=== PATIENT | male | born 1965 | race Caucasian/White ===

== ENCOUNTER 2018-10-08 12:51 | Emergency (ER) | payer MEDICARE, MEDICAID ==
[~2018-10-08] VITALS: Ht 170.2 cm; Wt 70.5 kg
[2018-10-08] MEDS ORDERED: normal saline 1000ml 1,000 ML IV ONE ×2 (13:15→14:05)
[2018-10-08 13:47] LABS: BASOPHILS # (AUTO) 0.1 X10'3 (0-0.2); BASOPHILS % (AUTO) 0.8 % (0-1); EOSINOPHILS # (AUTO) 0.4 X10'3 (0-0.9); EOSINOPHILS % (AUTO) 4.7 % (0-6); HEMATOCRIT 42.6 % (42.0-52.0); HEMOGLOBIN 13.7 g/dl (14.0-17.9); LYMPHOCYTES # (AUTO) 2.1 X10'3 (1.1-4.8); LYMPHOCYTES % (AUTO) 26.8 % (21-51); MEAN CORPUSCULAR HEMOGLOBIN 23.3 PG (27.0-31.0); MEAN CORPUSCULAR HGB CONC 32.2 % (33.0-36.5); MEAN CORPUSCULAR VOLUME 72.4 FL (78-98); MEAN PLATELET VOLUME 11.5 FL (7.4-10.4); MONOCYTES # (AUTO) 0.5 X10'3 (0-0.9); MONOCYTES % (AUTO) 7.2 % (2-12); NEUTROPHILS # (AUTO) 4.6 X10'3 (1.8-7.7); NEUTROPHILS % (AUTO) 60.5 % (42-75); PLATELET COUNT 192 X10'3 (140-440); RED BLOOD COUNT 5.88 X10'6 (4.70-6.10); RED CELL DISTRIBUTION WIDTH 16.7 % (11.5-14.5); WHITE BLOOD COUNT 7.7 X10'3 (4.5-11.0)
[2018-10-08 13:54] LABS: CLARITY,URINE CLEAR (Clear); COLOR,URINE YELLOW (Yellow); GLUCOSE, URINE NEGATIVE (Neg); KETONES,URINE NEGATIVE (Neg); LEUKOCYTE ESTERASE ,URINE NEGATIVE (Neg); NITRITES, URINE NEGATIVE (Neg); OCCULT BLOOD,URINE NEGATIVE (Neg); PROTEIN,URINE NEGATIVE (Neg)
[2018-10-08 13:56] LABS: UA COLLECTION TYPE STRAIGHT CATH
[2018-10-08 14:02] LABS: ALANINE AMINOTRANSFERASE 73 U/L (12-78); ALBUMIN 4.1 G/DL (3.4-5.0); ALKALINE PHOSPHATASE 133 IU/L (46-116); ANION GAP 14 (8-16); ASPARTATE AMINO TRANSFERASE 70 U/L (10-37); BILIRUBIN,TOTAL 0.6 MG/DL (0.1-1.0); BLOOD UREA NITROGEN 9 MG/DL (7-18); BUN/CREATININE RATIO 9.8 (5.4-32.0); CALCIUM 9.2 MG/DL (8.5-10.1); CHLORIDE 100 MMOL/L (99-107); CREATININE 0.92 MG/DL (0.60-1.10); GLUCOSE 144 MG/DL (70-104); POTASSIUM 3.8 MMOL/L (3.5-5.1); SODIUM 136 MMOL/L (135-145); TOTAL CARBON DIOXIDE 22.3 MMOL/L (24-32); TOTAL PROTEIN 8.2 G/DL (6.4-8.2); eGFR 86 ML/MIN
[2018-10-08] MEDS ORDERED: levetiracetam inj 1,000 MG in normal saline 100ml IV soln 90 ML IV ONE (14:05)
[2018-10-08 14:36] VITALS: BP 151/93
== END 2018-10-08 15:11 | disposition home or self-care (01) ==
LOC: ER 12:52
DX: R56.9 Unspecified convulsions (principal); I10 Essential (primary) hypertension; F84.0 Autistic disorder
CPT/HCPCS: 36415; 80053; 81003; 85025; 93005; 96365; 99285; J1953; P9612; J7030

== ENCOUNTER 2020-06-13 17:32 | Emergency (ER) | payer MEDICARE, MEDICAID ==
[~2020-06-13] VITALS: Ht 177.8 cm; Wt 109.1 kg
[2020-06-13] MEDS ORDERED: normal saline 1000ML IV soln IVB ONE (18:00)
[2020-06-13 18:31] LABS: BASOPHILS # (AUTO) 0.1 X10'3 (0-0.2); BASOPHILS % (AUTO) 1.6 % (0-1); EOSINOPHILS # (AUTO) 0.2 X10'3 (0-0.9); EOSINOPHILS % (AUTO) 3.5 % (0-6); HEMATOCRIT 31.5 % (42.0-52.0); HEMOGLOBIN 9.6 g/dl (14.0-17.9); LYMPHOCYTES % (AUTO) 28.9 % (21-51); MEAN CORPUSCULAR HEMOGLOBIN 20.1 PG (27.0-31.0); MEAN CORPUSCULAR HGB CONC 30.5 g/dL (33.0-36.5); MEAN CORPUSCULAR VOLUME 65.8 FL (78-98); MEAN PLATELET VOLUME 10.4 FL (7.4-10.4); MONOCYTES # (AUTO) 0.6 X10'3 (0-0.9); PLATELET COUNT 130 X10'3 (140-440); RED BLOOD COUNT 4.79 X10'6 (4.70-6.10); RED CELL DISTRIBUTION WIDTH 18.7 % (11.5-14.5)
--- NOTE | 2020-06-13 18:40 | NUR ---
Pt's Nephew phoned and reports he has been contacted by [facility]PS and is currently the point of contact for the family at this time. Pt's family are attempting to have him placed at [facility] as an inpatient once a COVID-19 swab and a TB test are completed. Provider made aware.
[2020-06-13 18:44] LABS: ALANINE AMINOTRANSFERASE 33 U/L (12-78); ALBUMIN 3.3 G/DL (3.4-5.0); ALBUMIN/GLOBULIN RATIO 0.8 (1.1-1.5); ALKALINE PHOSPHATASE 174 IU/L (46-116); ANION GAP 13 (8-16); ASPARTATE AMINO TRANSFERASE 53 U/L (10-37); BILIRUBIN,TOTAL 1.3 MG/DL (0.1-1.0); BLOOD UREA NITROGEN 4 MG/DL (7-18); BUN/CREATININE RATIO 4.3 (5.4-32.0); CALCIUM 7.9 MG/DL (8.5-10.1); CHLORIDE 106 MMOL/L (99-107); CREATININE 0.92 MG/DL (0.60-1.10); GLUCOSE 171 MG/DL (70-104); POTASSIUM 3.6 MMOL/L (3.5-5.1); SODIUM 137 MMOL/L (135-145); TOTAL CARBON DIOXIDE 18.1 MMOL/L (24-32); TOTAL PROTEIN 7.4 G/DL (6.4-8.2); eGFR 85 ML/MIN
[2020-06-13 18:53] LABS: CREATINE KINASE 58 U/L (39-308); ETHANOL < 0.010 GM/DL (0.0-0.010)
[2020-06-13] MEDS ORDERED: LORazepam 2 mg/ml vial IV ONE (19:05)
[2020-06-13 19:11] LABS: ACANTHOCYTES 1+; ANISOCYTOSIS 2+; HYPOCHROMASIA 1+; PLATELET ESTIMATE DECREASED; POIKILOCYTOSIS 2+
[2020-06-13 19:12] LABS: ELLIPTOCYTES FEW; SCHISTOCYTES FEW
[2020-06-13] MEDS ORDERED: LORazepam 2 mg/ml vial IM ONE (19:25)
[2020-06-13 19:26] LABS: CLARITY,URINE SLIGHTLY CLOUDY (Clear); COLOR,URINE YELLOW (Yellow); GLUCOSE, URINE NEGATIVE (Neg); KETONES,URINE NEGATIVE (Neg); LEUKOCYTE ESTERASE ,URINE TRACE (Neg); NITRITES, URINE NEGATIVE (Neg); OCCULT BLOOD,URINE NEGATIVE (Neg); PROTEIN,URINE NEGATIVE (Neg)
[2020-06-13 19:36] LABS: UA COLLECTION TYPE STRAIGHT CATH
[2020-06-13 19:38] LABS: AMORPHOUS URATES 2+; BACTERIA,URINE FEW /HPF (Neg); RBC,URINE NONE SEEN /HPF (0-2); SQUAMOUS EPITHELIAL CELL,UR FEW /LPF (FEW); WBC,URINE 0-4 /HPF (0-4)
--- NOTE | 2020-06-13 19:41 | NUR ---
WHILE PRIMARY RN ON LUNCH BREAK, PT CLEANED UP FROM HEAD TO TOE PT COVERED IN FECES, URINE SAMPLE COLLECTED, LINENS CHANGED AND KARLA CARE PROVIDED. PT NOW TUCKED BACK INTO BED WITH NEW WARM BLANKETS.
[2020-06-13 19:42] LABS: URINE AMPHETAMINE SCREEN NEGATIVE (Neg); URINE BARBITUATE SCREEN NEGATIVE (Neg); URINE BENZODIAZEPINES SCREEN NEGATIVE (Neg); URINE CANNABINOID SCREEN NEGATIVE (Neg); URINE COCAINE SCREEN NEGATIVE (Neg); URINE METHADONE SCREEN NEGATIVE (Neg); URINE OPIATE SCREEN NEGATIVE (Neg); URINE PHENCYCLIDINE SCREEN NEGATIVE (Neg)
--- NOTE | 2020-06-13 20:29 | NUR ---
Note brad in EDM - 06/13/20 at 2030 by AMANDA BREAKING PRIMARY RN. PT IS RESTING COMFORTABLY WITH US AT BEDSIDE. WILL CONTINUE TO MONITOR.
--- NOTE | 2020-06-13 20:30 | NUR ---
BREAKING PRIMARY RN. WILL MONITOR PT. PT RESTING COMFORTABLY.
--- NOTE | 2020-06-13 20:30 | NUR ---
Note brad in ED - 06/13/20 at 2030 by AMANDA BREAKING PRIMARY RN. WILL MONITOR PT. PT RESTING COMFORTABLY.
[2020-06-13] MEDS ORDERED: BENZ0.5T43 PO (21:30)
[2020-06-13] MEDS ORDERED: DIVA-81 PO (21:30)
[2020-06-13] MEDS ORDERED: HALO1TAB PO (21:30)
[2020-06-13] MEDS ORDERED: METO25TA6 PO (21:30)
[2020-06-13] MEDS ORDERED: ATOR20TA PO (21:30)
[2020-06-13] MEDS: atorvastatin 20mg tablet PO SCH (22:01)
[2020-06-13] MEDS: divalproex sod 250mg ER (24-hour) tablet PO SCH (22:02)
[2020-06-13] MEDS: benztropine 1mg tablet PO SCH (22:02)
--- NOTE | 2020-06-13 22:14 | NUR ---
PT MOVED FROM ROOM 7 IN ED TO ED OF BED 24.
--- NOTE | 2020-06-13 22:21 | NUR ---
Patient moved to bed #24 from the ER. He is making mumbling noises other than that is he nonverbal.
--- NOTE | 2020-06-13 22:23 | NUR ---
Family member: Carmen Carmelo Carol Ann [phone]
--- NOTE | 2020-06-13 22:35 | NUR ---
Packet to [facility] and they are aware of patient developemental delays. They will see him tomorrow.
--- NOTE | 2020-06-14 00:05 | NUR ---
The patient is resting on his bed and is one to one with staff
--- NOTE | 2020-06-14 02:17 | NUR ---
The patient appears to be sleeping
[2020-06-14] MEDS ORDERED: LORazepam 1 MG tablet PO ONE (03:40)
--- NOTE | 2020-06-14 03:47 | NUR ---
The patient is up restless and making loud grunting noises. He was given ativan with applesauce.
--- NOTE | 2020-06-14 05:43 | NUR ---
Laura salinas in [facility] - 06/14/20 at 0548 by AMANDA PT MOVED TO ED ROOM 16.
--- NOTE | 2020-06-14 05:51 | NUR ---
The patient appears to be sleeping
--- NOTE | 2020-06-14 07:21 | NUR ---
asleep no resp dist
--- NOTE | 2020-06-14 08:02 | NUR ---
asleep no resp dist
[2020-06-14] MEDS: haloperidol 1mg tablet PO SCH ×3 (08:38→23:23)
[2020-06-14] MEDS: metoprolol tartrate 25mg tablet PO SCH ×2 (08:38→20:00)
--- NOTE | 2020-06-14 09:30 | NUR ---
asleep no resp dist
--- NOTE | 2020-06-14 10:17 | NUR ---
asleep no resp dist
--- NOTE | 2020-06-14 10:20 | NUR ---
was notified if pt were to be transferred that the accepting facility is requiring a covid swab
--- NOTE | 2020-06-14 10:30 | NUR ---
COVID swab sent to lab
--- NOTE | 2020-06-14 10:34 | NUR ---
was just notified that the accepting facility is now asking for a tb test to be completed before transfer or a chest xray to r/o tb. dr hathaway notified.
--- NOTE | 2020-06-14 11:26 | NUR ---
pt walked without assistance around nursing station. pt is nonverbal and was directed to bathroom, pt refused, pt was given food and walked back to bed to eat food. no distress noted.
--- NOTE | 2020-06-14 11:40 | NUR ---
In bed keeps having to be redirected back to bed keeps getting out and wandering around, patient is non-verbal so unable to vocalize needs
--- NOTE | 2020-06-14 12:11 | NUR ---
Walking around needing to be redirected constantly
--- NOTE | 2020-06-14 13:26 | NUR ---
relieving RN for lunch, contacted Horace Tran, staff for [facility] looking for placement for pt, [facility] , no bed available yet, need to fax covid and cxray results to [facility] at (fax number [phone]), charge nurse aware, also [facility] will transfer pt to new facility when bed is available. Report to Randell LESTER
--- NOTE | 2020-06-14 13:56 | NUR ---
Resting in bed no resp distress
--- NOTE | 2020-06-14 14:28 | NUR ---
Resting in bed no resp distress
--- NOTE | 2020-06-14 15:00 | NUR ---
asleep no resp distress
[2020-06-14] MEDS: LORazepam 1 MG tablet PO PRN ×2 (15:02→23:23)
--- NOTE | 2020-06-14 16:00 | NUR ---
asleep no distress
--- NOTE | 2020-06-14 17:00 | NUR ---
asleep no distress
--- NOTE | 2020-06-14 19:04 | NUR ---
Pt resting quietly, respirations normal, no s/s of distress. Attempted to wake pt for dinner.
--- NOTE | 2020-06-14 20:30 | NUR ---
Unable to wake pt fully to cooperate with taking po meds. Will attempt again later tonight.
[2020-06-14] MEDS: benztropine 1mg tablet PO SCH ×2 (21:00→23:23)
[2020-06-14] MEDS: divalproex sod 250mg ER (24-hour) tablet PO SCH ×2 (21:00→23:23)
[2020-06-14] MEDS: atorvastatin 20mg tablet PO SCH ×2 (21:00→23:23)
[2020-06-14] MEDS ORDERED: traZODone 50mg tablet PO SCH (21:25)
--- NOTE | 2020-06-14 23:00 | NUR ---
Pt up out of bed all of a sudden. Wandering the unit, growling. Meds given.
--- NOTE | 2020-06-14 23:49 | NUR ---
Pt urinated on the floor, copious amounts of urine.
--- NOTE | 2020-06-15 01:00 | NUR ---
Pt continuously attempts to get out of bed.
[2020-06-15] MEDS ORDERED: diphenhydrAMINE 25mg capsule PO ONE ×2 (01:50→19:40)
--- NOTE | 2020-06-15 02:45 | NUR ---
Pt had bowel movement in bed. Pt changed and bedding changed
--- NOTE | 2020-06-15 03:15 | NUR ---
Pt was incontinent of bowel again. Pt cleaned up and put back into bed.
--- NOTE | 2020-06-15 03:38 | NUR ---
Pt continues to get out of bed despite constant redirecting. Approaching area of 14 year female pt. Pt placed in restraints per md orders. Will continue to monitor.
[2020-06-15] MEDS ORDERED: LORazepam 2 mg/ml vial IM ONE (03:40)
[2020-06-15] MEDS ORDERED: haloperidol lactate 5mg/ml inj IM ONE (03:40)
--- NOTE | 2020-06-15 04:08 | NUR ---
Pt given b52 and still continuously trying to get out of bed.
--- NOTE | 2020-06-15 06:40 | NUR ---
Nursing Note: Pt laying in bed with eyes closed, no S&S of distress, RR even and unlabored, will continue to monitor.
--- NOTE | 2020-06-15 08:00 | NUR ---
Nursing Note: Unable to complete Johnston Suicide Severity Scale, pt is non-verbal and unable to respond to questions. Will continue to monitor.
--- NOTE | 2020-06-15 08:09 | NUR ---
Nursing Note: Pt laying on R side, eyes closed, RR even and unlabored, no S&S of distress, will continue to monitor.
[2020-06-15] MEDS: metoprolol tartrate 25mg tablet PO SCH ×2 (09:26→19:52)
[2020-06-15] MEDS: haloperidol 1mg tablet PO SCH ×2 (09:26→19:57)
--- NOTE | 2020-06-15 09:37 | NUR ---
Nursing Note: Pt up to the restroom. Pt urinated on the floor and in the toilet. Pt took his medications with jello. Medications late due to the fact he was sleeping due to medications given at 0400. Pt needs frequent redirection and encouragement to stay in bed. Will continue to monitor.
--- NOTE | 2020-06-15 10:34 | NUR ---
Nursing Note: Spoke with Lela, health c programmer at [facility] - work and . She requested P.C.R. test for Covid-19. Discussed this with CRN and [facility] does not offer a P.C.R. Covid test. Informed Lela that test is not available, she indicated she would proceed with trying to place patient with the Covid-19 (YVETTE) test already completed. Will continue to monitor.
--- NOTE | 2020-06-15 11:06 | NUR ---
assumed care while RN is on her 15 min break
--- NOTE | 2020-06-15 12:39 | NUR ---
pt up and down from his bed. in no obvious distress. walking around near the nursing station and back to bed.
--- NOTE | 2020-06-15 13:20 | NUR ---
Nursing Note: Pt consumed approximately 50% of his lunch with assistance from staff. Pt up walking around, but was redirectable to return to be. No S&S of distress, will continue to monitor.
--- NOTE | 2020-06-15 13:47 | NUR ---
Nursing Note: Pt walking in the haney. He is calm. He is intrusive with other patients. He requires close observation to ensure his safety and prevent him from entering other patient's rooms, the nursing station, and wandering from the overflow area. No S&S of distress, RR even and unlabored, will continue to monitor.
[2020-06-15] MEDS: LORazepam 1 MG tablet PO PRN (15:09)
--- NOTE | 2020-06-15 15:18 | NUR ---
Nursing Note: Pt continuously getting out of bed and wandering in unit. His gait is unsteady. Pt is redirected to lay in bed to prevent a fall, but he gets back out of bed within minutes. With pt's increased psychomotor activity he appears anxious. Ativan administered. Pt used restroom and returned to bed. Will continue to monitor.
--- NOTE | 2020-06-15 15:37 | NUR ---
Nursing Note: Pt laying on back in bed covered with a blanket. RR even unlabored, no S&S of distress. Will continue to monitor.
--- NOTE | 2020-06-15 16:30 | NUR ---
Nursing Note: Pt laying in bed with blanket over his head, Respirations even and unlabored, no S&S of distress, will continue to monitor.
--- NOTE | 2020-06-15 17:40 | NUR ---
Nursing Note: Pt laying on his L side with blanket over his head. RR even and unlabored, no S&S of distress, will continue to monitor.
[2020-06-15] MEDS ORDERED: LORazepam 1 MG tablet PO ONE (19:40)
[2020-06-15] MEDS ORDERED: haloperidol 5mg tablet PO ONE (19:40)
--- NOTE | 2020-06-15 19:50 | NUR ---
Pt. very anxious since 1814, getting in and out of bed, walking around the unit. He is difficult to redirect and requires constant monitoring by tech. Tech has been very involved and hands one with care. Pt's gait is very unstable and he requires contact guard assistance. made aware of pt's anxiety. New orders received from .
[2020-06-15] MEDS: atorvastatin 20mg tablet PO SCH (19:51)
[2020-06-15] MEDS: benztropine 1mg tablet PO SCH (19:52)
[2020-06-15] MEDS: divalproex sod 250mg ER (24-hour) tablet PO SCH (19:53)
--- NOTE | 2020-06-15 20:50 | NUR ---
Pt. laying in bed, resting/sleeping. No s/s of discomfort. Fluids encouraged.
--- NOTE | 2020-06-15 21:52 | NUR ---
Pt. sleeping at this time. No s/s of discomfort/distress. Even chest rise observed.
--- NOTE | 2020-06-16 00:27 | NUR ---
Pt. continues to sleep at this time. No s/s of discomfort/distress. Even chest rise apparent.
--- NOTE | 2020-06-16 01:19 | NUR ---
Pt. assisted to the bathroom at this time. He was able to void succesfully. Briefs checked for soilage. During the time that pt. was in the bathroom, he started to hit/punch himself on the side of his face. He did not cause any injury and he was easily redirected. He does have apparent old bruising to the L side of his face. computer technology teacher to sit with patient until he's sleeping again.
--- NOTE | 2020-06-16 02:31 | NUR ---
Pt. is requiring constant redirection. He has had periods of trying to get in and out of bed in the last hour. Pt. assisted to the bathroom, but he does not have any apparent needs to void or have a BM. Pt. being monitored by tech closely.
--- NOTE | 2020-06-16 03:40 | NUR ---
Pt. asleep. No concern at this time.
--- NOTE | 2020-06-16 04:35 | NUR ---
Pt. continues to sleep.
--- NOTE | 2020-06-16 05:57 | NUR ---
Pt. woke up and attempted to get out of bed. Pt. assisted to the bathroom but did not have to void or have a BM. Brief is dry and clean. Pt. was assisted back to bed and requires 1:1 to maintain safety. He also has behavior where he strikes himself with his fist when he is frustrated. Pt. redirected but not always effective.
--- NOTE | 2020-06-16 06:45 | NUR ---
pt walked around nursing station, no assistance needed, bed changed, refilled pt water. no distress noted.
[2020-06-16] MEDS: haloperidol 1mg tablet PO SCH ×2 (08:16→20:00)
[2020-06-16] MEDS: metoprolol tartrate 25mg tablet PO SCH ×2 (08:17→20:00)
--- NOTE | 2020-06-16 08:27 | NUR ---
pt given socks, redirected when walked out of overflow back doors. pt walked back. wandering overflow with no assistance needed. no distress noted, pt refused bathroom at this time.
--- NOTE | 2020-06-16 09:01 | NUR ---
pt laying in bed no distress noted. refilled pt water pitcher.
--- NOTE | 2020-06-16 09:35 | NUR ---
pt changed { diaper changed }by covered buckle assembler,pt urinated at this time ,new scrubs changed,bedding changed ,pt followed the commands,no distress noted .will cont to monitor.
--- NOTE | 2020-06-16 10:01 | NUR ---
pt has bm changed and cleaned with new diaper on,pt resting in bed at this time.will cont to monitor.
--- NOTE | 2020-06-16 10:24 | NUR ---
pt wandering in the haney way redirected by the home energy auditor ,asked if he wants to use restroom,opned the door and pt went inside and urinated by himself.urinated some on the floor and then able to urinate in toilet,pt pants changed and tucked in bed.
--- NOTE | 2020-06-16 11:39 | NUR ---
pt appear sleeping at this time RR even and unlabored,room in front of nurses station.will cont to monitor .
--- NOTE | 2020-06-16 12:47 | NUR ---
pt sleeping in bed quietly ,RR even and unlabored ,will cont to monitor.
--- NOTE | 2020-06-16 13:33 | NUR ---
pt up in bed went to restroom with assisstance pt urinated on the floor ,pt pants and socks changed ,positioned up higher in bed .now sitting up in bed eating his lunch without any assistance.
--- NOTE | 2020-06-16 14:43 | NUR ---
Assumed care of patient
[2020-06-16] MEDS: LORazepam 1 MG tablet PO PRN (15:30)
--- NOTE | 2020-06-16 16:54 | NUR ---
Pt asleep in no apparent distress
--- NOTE | 2020-06-16 17:20 | NUR ---
Pt sitting up eating crackers
--- NOTE | 2020-06-16 19:30 | NUR ---
Pt. in bed, calm. No s/s of distress/discomfort.
--- NOTE | 2020-06-16 20:30 | NUR ---
Pt. resting in bed, awake. Given and tolerated fluids. No other needs at this time.
[2020-06-16] MEDS: benztropine 1mg tablet PO SCH (21:00)
[2020-06-16] MEDS: divalproex sod 250mg ER (24-hour) tablet PO SCH (21:00)
[2020-06-16] MEDS: atorvastatin 20mg tablet PO SCH (21:00)
--- NOTE | 2020-06-16 21:30 | NUR ---
Pt. in bed, resting with eyes closed. No s/s of distress/discomfort.
--- NOTE | 2020-06-16 22:19 | NUR ---
Pt. in bed, asleep. Appears comfortable.
--- NOTE | 2020-06-16 23:21 | NUR ---
Pt. in bed, asleep. Even chest rise observed. No signs of discomfort.
--- NOTE | 2020-06-16 23:58 | NUR ---
relieving RN for break, pt is resting quietly on gurney, resp even and unlabored
--- NOTE | 2020-06-17 00:30 | NUR ---
Pt. on L side sleeping comfortably.
--- NOTE | 2020-06-17 01:51 | NUR ---
Pt. woke up at this time and was assisted to the bathroom. Pt. successfully voided. Briefs and bed noted to be dry. Fluids provided to pt. Pt. assisted to walk around by tech, as he was not staying in bed. Gait is unsteady and pt. requires contact guard assistance.
[2020-06-17] MEDS: LORazepam 1 MG tablet PO PRN ×3 (01:58→20:38)
--- NOTE | 2020-06-17 02:18 | NUR ---
Pt. continues to get in and out of bed. He requires 1:1 due to unsteady gait. Fluids provided. Will continue to closely monitor.
--- NOTE | 2020-06-17 03:15 | NUR ---
Pt. starting to calm down. Tech at bedside providing 1:1.
--- NOTE | 2020-06-17 04:30 | NUR ---
Pt. in bed on R side, sleeping comfortably.
--- NOTE | 2020-06-17 05:27 | NUR ---
Pt. continues to sleep. Even chest rise observed. Appears comfortable.
--- NOTE | 2020-06-17 06:50 | NUR ---
Pt gets up and out of bed and wanders in front of nurses station. ER sitter at pt side and redirects pt back to bed. Pt has been up several times and has also been taken to bathroom as well. Pt is non-verbal and unable to communicate needs.
--- NOTE | 2020-06-17 07:15 | NUR ---
Pt continues to get up and down out of bed and wander. ED MD Chambers came over and saw pt and requested medication as pt now getting agitated and moaning out loud and pacing.
--- NOTE | 2020-06-17 07:50 | NUR ---
Morning meds and PRN Ativan administered. Pt has been yelling out loud (no words) and constantly redirectd to bed after making "laps" around nurses station with sitter walking along/near by pt.
[2020-06-17] MEDS: haloperidol 1mg tablet PO SCH (07:51)
[2020-06-17] MEDS: metoprolol tartrate 25mg tablet PO SCH ×2 (07:52→20:38)
[2020-06-17] MEDS ORDERED: haloperidol 1mg tablet PO SCH (08:00)
--- NOTE | 2020-06-17 08:16 | NUR ---
TV taken at bedside and playing [employer]. Sitter remains at bedside with pt as well.
--- NOTE | 2020-06-17 10:45 | NUR ---
Pt stayed in bed during movie with encouragement of bedside sitter. Pt is now resting with eyes closed, effortless respirations observed.
--- NOTE | 2020-06-17 12:50 | NUR ---
Patient is up ambulating with nurses aid.
[2020-06-17] MEDS ORDERED: risperiDONE 0.5mg tablet PO ONE (13:25)
--- NOTE | 2020-06-17 13:30 | NUR ---
HAD PSYCHIATRIST DR. GERMAIN REVIEW PT MEDS AND RECEIVED ORDERS TO DC HALDOL AND COGENTIN ORDERS AND PT TO BE STARTED ON RISPERDOL.
--- NOTE | 2020-06-17 18:30 | NUR ---
PT WALKING AROUND THE UNIT WITH STEADY GAIT .
--- NOTE | 2020-06-17 19:40 | NUR ---
PT UP TO BATHROOM . PT WAS FED HIS ENTIRE DINNER BY SITTER .
[2020-06-17] MEDS: atorvastatin 20mg tablet PO SCH (20:37)
[2020-06-17] MEDS: divalproex sod 250mg ER (24-hour) tablet PO SCH (20:37)
[2020-06-17] MEDS: risperiDONE 0.5mg tablet PO SCH (20:37)
--- NOTE | 2020-06-17 20:50 | NUR ---
PT GIVEN HIS EVENING MEDS WITH APPLESAUCE . PT WITH SITTER MABULATING AROUND UNIT ADVISED SITTER THAT PATIENT WILL NEED TO STAY IN BED AFTER HIS NEX TO LAPS AROUND THE UNIT THE MEDICATION WILL START TO TAKE EFFECT .
--- NOTE | 2020-06-17 20:53 | NUR ---
PT NOW BACK TO BED . HOB ELEVATED 30 DEGREES . SITTER AT BEDSIDE . PT IN THE DIRECT LINE OF SIGHT OF NURSING STAFF .
--- NOTE | 2020-06-17 22:30 | NUR ---
PT STILL AMBULATING HALLWAY WITH SITTER. PT ABLE TO BE REDIRECTED BUT PT IS VERY NEEDY. ONCE PATIENT IS IN BED HE REQUIRES A SITTER TO SIT AT BEDISDE WITH HIM , OTHERWISE HE TRIES TO GET OUT OF BED . REDIRECTED PATIENT BACK TO BED . PATIENT BLOWING "RESPBERRIES " AND HAS HICCUPS
[2020-06-17] MEDS: risperiDONE 0.5mg tablet PO PRN (23:05)
--- NOTE | 2020-06-17 23:26 | NUR ---
Pt is awake at this time but nondisruptive and is accepting to care and basic directions. He has been trying to get out of bed every few minutes. PRN respirdone was given. Pt was checked for incontinence and is clean at this time. He was given a snack of applesauce.
--- NOTE | 2020-06-18 00:40 | NUR ---
PT NEEDING A LINEN AND SCRUB CHANGE . HE HAD X1 VOID THAT SOILED HIS SCRUBS AND BEDDING . PT WAS COROPORATIVE IN CHANGING HIS CLOTHING , PT BLOWING RASPBERRIES. PT OCCATIONALLY WILL HIT HIMSELF IN THE FACE AND RIGHT EYE. REDIRECTED PATIENT TO TRY AND DISTRACT PATIENT FROM SELF HITTING . PT WAS ABLE TO BE DISTRACTED AND STOP HITTING HIMSELF. PT USES A FLAT HAND AND FIST WHEN HE HITS HIMSELF . PT ALSO HAS BEEN OBSERVED T KICK HIMSELF WITH HIS LEFT HEEL AT THE RIGHT SCHIN AREA. PT IS FAINT BRUSING THAT IS STARTING TO APPEAR ON HIS FACE AT THE RIGHT EYE AND RIGHT CHEEK BONE AREA . RIGHT LOWER EXTREMITITY ABOVE THE ANKLE , BELOW THE KNEE REDDENED WHERE PATIENT HAS BEEN OCCATIONALLY KICKING HIMSLEF .
--- NOTE | 2020-06-18 01:15 | NUR ---
PT RESTING IN BED, HOB ELEVATED 30 DEGREES . PT AUROSABLE WITH TOUCH . SITTER AT BEDSUDE REDIRECTING PATIENT TO TRY AND SLEEP .
--- NOTE | 2020-06-18 01:23 | NUR ---
PT SLEEPING PEACFULLY ON HIS RIGHT SIDE AT THIS TIME WITH SITTER AT BEDSIDE . RESP EVEN AND UNLABORED . WILL CONTINUE TO MONITOR AND REASSESS NEEDED
[2020-06-18] MEDS: LORazepam 1 MG tablet PO PRN (02:37)
--- NOTE | 2020-06-18 02:44 | NUR ---
PT STILL TRYING TO GET UP OUT OF BED . SITTER AND MYSELF KEEP REDIRECTING PATIENT TO REMAIN IN BED HE HAS MEDICATION ON BOARD THAT COULD AFFECT HIS GAIT . PT RANDOMLY, WILL HIT HIS ELBOWS AGAINST HIS KNEES. HIS RIGHT ELBOW IS CURRENTLY ERRYTHEMIC WITH SOME SLIGHT SWELLING . REDIRECTED PATIENT FROM HITTING SELF IN CHRIS FACE WITH HIS FISTS, KICKING HIS RIGHT SCHIN WITH HIS LEFT HEEL, AND HITS HIS ELBOWS TO HIS THIGHS BILATERALY . CHECKED PATIENT DEPENDS TO MAKE SURE PT WAS DRY . REPSOTIONED PT ON HIS RIGHT SIDE . WARM BLANKETS OFFERED . PT PILLED BLANKET OVER HIS HEAD. MEDICATED PATIENT WITH 1 MG ATIVAN PO AND FED PATIENT SOME APPLE SAUCE . WILL CONTINUE TO MONITOR AND REASSESS. PT HAS HAD MAYBE ONLY 1 HR OF SLEEP SINCE 1830 .
--- NOTE | 2020-06-18 02:59 | NUR ---
PT CURREBTLY RESTING ON RIGHT SIDE WITH SITTER AT BEDSIDE . PT EYES ARE CLOSED AND HE APPEARS TO BE RESTING. RESP EVEN AND UNLABORED . WILL CONTINUE TO MONITOR AND REASSESS NEEDED
--- NOTE | 2020-06-18 03:22 | NUR ---
PT , WITH ASSISTANCE AMBULATED TO BATHROOM. CHANGED PTS SCRUBS AND ALLOWED PATIENT TO SIT ON TOLIET FOR A POSSIBLE BM PATIENT IS PASSING GAS . PUT WARM BLANKET ON BOTTOM SHEET TO HELP COMFORT MEASURES TO ASSIT PATIENT TO SLEEP . PT AMBULATED BACK TO BED WITH ASSITANCE AND CRAWLED BACK TO BED. PT CURRENTLY LYING SUPINE WITH HOB ELEVATED 30 DEGREES WITH BLANKETS OVER HIS HEAD . ABLE TO SEE CHEST RIASE AND FALL UNLABORED . WILL CONTINUE TO MONITOR AND REASSESS NEEDED
--- NOTE | 2020-06-18 04:38 | NUR ---
PT IS SLEEPING ON HIS LEFT SIDE . RESP EVEN AND UNLABORED . SITTER AT BEDSIDE WILL CONTINUE TO MONITOR AND REASSESS
--- NOTE | 2020-06-18 05:08 | NUR ---
PT SLEEPING FINALLY ON HIS LEFT SIDE RESO EVEN AND UNLABORED WILL CONTINUE TO MONITOR AND REASSESS NEEDED
--- NOTE | 2020-06-18 06:44 | NUR ---
PT AWAKE AND GETTING UP OUT OF BED. SITTER AT BEDSIDE TO ASSIST PT TO THE BATHROOM. PT IS UNSTEADY ON HIS FEET AT TIMES. PT NOW BACK IN BED AND SITTER IN CHAIR AT THE BEDSIDE. PT IS A ONE TO ONE.
--- NOTE | 2020-06-18 07:11 | NUR ---
PT PASSING GAS, TAKE PT TO BATHROOM TO SIT ON TOILET TO TRY TO HAVE A BM.
--- NOTE | 2020-06-18 07:17 | NUR ---
PT VOIDS AND IS BROUGHT BACK TO HIS BED.
[2020-06-18] MEDS: risperiDONE 0.5mg tablet PO SCH ×2 (07:19→20:21)
[2020-06-18] MEDS: metoprolol tartrate 25mg tablet PO SCH ×2 (07:20→20:27)
--- NOTE | 2020-06-18 07:24 | NUR ---
PT GIVEN MORNING MEDICATIONS WITH APPLESAUCE AND SEEMS HUNGRY. GIVE PT A SECOND APPLESAUCE. BREAKFAST SHOULD BE HERE BY 8AM
--- NOTE | 2020-06-18 08:08 | NUR ---
BREAKFAST TRAY BROUGHT TO PT. SITTER AT BEDSIDE TO ASSIST PT WITH EATING.
--- NOTE | 2020-06-18 09:07 | NUR ---
PT RESTING QUIETLY IN BED WITH COVERS OVER HIS HEAD. SITTER AT BEDSIDE FOR CLOSE OBSERVATION.
--- NOTE | 2020-06-18 13:07 | NUR ---
PT EATING LUNCH, FED TO HIM BY THE SITTER.
--- NOTE | 2020-06-18 15:00 | NUR ---
PT AMBULATING AROUND THE LOOP FOR EXERCISE.
--- NOTE | 2020-06-18 16:01 | NUR ---
SET UP THE TV IN PT'S ROOM TO KEEP HIM ENTERTAINED. SITTER AT BEDSIDE.
[2020-06-18] MEDS: divalproex sod 250mg ER (24-hour) tablet PO SCH (20:21)
[2020-06-18] MEDS: atorvastatin 20mg tablet PO SCH (20:21)
--- NOTE | 2020-06-18 21:09 | NUR ---
PT RESTING SUPINE IN BED . HOB ELEVATED 30 DEGREES. SITTER AT BEDSIDE , PT IS BLOWING AN OCCATIONAL " RASPBERRY" WITH HIS LIPS . NO RESP DISTRESSED NOTED . WILL CONTINUE TO MONITOR AND REASSESS
--- NOTE | 2020-06-18 23:07 | NUR ---
PT CONTINUES WITH 1:1 SITTER NEXT TO HIS BED. HAS BEEN CALM OVER THE PAST HR AND APPEARS TO BE SLEEPING. CONTINUES TO MUMBLE SOME EVERY 20 -30 MIN. GIVEN HIS EVENING MEDS , WHOLE WITH APPLESAUCE, AT 9 PM AND PT TAKING THEM WITH EASE. PT EATING ABOUT 25% OF HIS DINNER, 1:1 FEED. HE DID GET OUT OF THE BED AND WAS SBA WITH SITTER TO AMBULATE AROUND THE UNIT. GOT TO THE BR AND TECH OPENED THE DOOR BUT PT THEN CLOSED IT. DAY SHIFT RN REPORTED THAT PT WITH EXCESSIVE FOUL SMELLING GAS TODAY AND SUSPECTES HE WILL NEED TO HAVE BM SOON. PT IS REDIRECTABLE TO GETTING BACK TO HIS BED.
--- NOTE | 2020-06-19 00:47 | NUR ---
PT BEGAN MUMBLING AND MOVING IN THE BED AND ATTEMPTED TO GET UP. PT ASSISTED OOB AND WITH SLOW GAIT,SBA TO BR. PT VOIDING, AND HAD DRY BRIEF ON BUT HAD GOTTON URINE ON HIS PANTS AND LEFT THEM IN THE BR AND CAME OUT WITHOUT THEM ON. PT THEN LAY BACK IN BED THEN GOT RIGHT UP AND WALKING A LAP AROUND THE UNIT BEFORE REDIRECTED TO HIS BED. GIVEN PRN ATIVAN AND RESPERIDOL TABS AND PT THEN ATE THE REST OF THE APPLESAUCE.
[2020-06-19] MEDS: risperiDONE 0.5mg tablet PO PRN (00:53)
[2020-06-19] MEDS: LORazepam 1 MG tablet PO PRN ×3 (00:53→20:01)
--- NOTE | 2020-06-19 01:58 | NUR ---
RESTLESSNESS CONTINUES, WIGGLING IN THE BED, KICKING AT THE FOOT BOARD, REDIRECTED TO STAY IN THE BED. PT ALLOWED OUT OF THE BED AND AMBULATED TWICE AROUND THE UNIT. DOOR TO BR OPENED FOR HIM BUT HE PUSHED IT CLOSED. REQUIRES SBA, WALKING SLOW AND UNSTEADY.
--- NOTE | 2020-06-19 04:07 | NUR ---
PT HAS BEEN CALM AND QUIET AND APPEARED TO BE SLEEPING OVER THE PAST HOUR. JUST SHIFTED IN BED AND MUMBLED AND HAD A BRIEF COUGHING SPELL.
[2020-06-19] MEDS: risperiDONE 0.5mg tablet PO SCH ×2 (09:55→20:00)
[2020-06-19] MEDS: metoprolol tartrate 25mg tablet PO SCH ×2 (09:56→20:01)
--- NOTE | 2020-06-19 10:11 | NUR ---
PT HAD BEEN SLEEPING PEACEFULLY, AWOKE AT 1000, PROVIDED AM MEDS WITH APPLESAUCE, NO PROBLEMS. CARRIE GARNICA ASSISTED PT TO BATHROOM. PT VERY GASSY. PT BACK IN BED MOANING.
--- NOTE | 2020-06-19 10:38 | NUR ---
REC'D CALL FROM MALLORIE ACUÑA AT [facility]. THEY ARE WORKING ON A PLACEMENT FOR HIM. MALLORIE SHOULD KNOW SOMETHING MORE THIS AFTERNOON AND WILL GIVE US A CALL BACK.
--- NOTE | 2020-06-19 12:26 | NUR ---
PT LAYING IN BED, EYES CLOSED, CHEST RISING AND FALLING, APPEARS TO BE SLEEPING
--- NOTE | 2020-06-19 13:54 | NUR ---
PT WANTED OUT OF BED, TRIED TAKING TO BATHROOM BUT HE DID NOT WANT TO GO, AIDE ASSISTED BACK TO BED AND ASSISTED WITH EATING LUNCH
--- NOTE | 2020-06-19 14:39 | NUR ---
CLEANED UP PT, TRIMMED TOENAILS, SHAVED HEAD, CLEANED EARS, CHANGED CLOTHES, WALKED AROUND FLOOR, AND WENT BACK TO BED
--- NOTE | 2020-06-19 15:38 | NUR ---
WALKING AROUND THE FLOOR WITH THE AIDE
--- NOTE | 2020-06-19 16:29 | NUR ---
IN BED ON LEFT SIDE SLEEPING
--- NOTE | 2020-06-19 17:42 | NUR ---
PT SLEEPING PEACEFULLY
[2020-06-19] MEDS: atorvastatin 20mg tablet PO SCH (20:00)
[2020-06-19] MEDS: divalproex sod 250mg ER (24-hour) tablet PO SCH (20:00)
--- NOTE | 2020-06-19 20:00 | NUR ---
The patient is wandering aimlessly around the unit. He is nonverbal but makes constant grunting noises. He requires frequent redirection and close supervision when up out of bed 2nd to increased fall risk and wandering behaviors. The patient was given an ativan.
--- NOTE | 2020-06-19 21:20 | NUR ---
The patient currently appears to be resting on his bed.
--- NOTE | 2020-06-19 22:34 | NUR ---
The patient appears to be sleeping
--- NOTE | 2020-06-19 23:58 | NUR ---
The patient appears to be sleeping
--- NOTE | 2020-06-20 03:08 | NUR ---
The patient appears to be sleeping
--- NOTE | 2020-06-20 04:10 | NUR ---
pt was sleeping, just awakened and got up and began walking. SBA to BR
--- NOTE | 2020-06-20 04:20 | NUR ---
pt out of the br with urine on his brief and his pants. changed into clean items. pt now back in the bed with blankets covering to his shouders and eyes closed.
--- NOTE | 2020-06-20 04:43 | NUR ---
Pt up and ambulating around unit again. I just walked around the unit with him 2 laps about 10 min ago. Ambulating with slow and steady gait and SBA, moaning loudly intermittently as he walks.
[2020-06-20] MEDS: risperiDONE 0.5mg tablet PO PRN (04:54)
--- NOTE | 2020-06-20 04:58 | NUR ---
pt up again and ambulated around the unit twice. Given prn respridone and a cup of applesauce and Pt ate the whole cup feeding self independantly
--- NOTE | 2020-06-20 06:30 | NUR ---
pt sleeping, sitter at bedside
--- NOTE | 2020-06-20 08:30 | NUR ---
pt is sleeping. no concerns
--- NOTE | 2020-06-20 09:11 | NUR ---
BREAKING PRIMARY RN, PT IS LAYING ON HIS LEFT SIDE, SLEEPING, NO S/S OF AGITATION OBSERVED, WILL CONTINUE TO MONITOR
[2020-06-20] MEDS: risperiDONE 0.5mg tablet PO SCH ×2 (09:30→20:12)
[2020-06-20] MEDS: metoprolol tartrate 25mg tablet PO SCH ×2 (09:30→20:12)
[2020-06-20] MEDS: LORazepam 1 MG tablet PO PRN (09:30)
--- NOTE | 2020-06-20 09:36 | NUR ---
PT AWAKE EATING BREAKFAST
--- NOTE | 2020-06-20 10:42 | NUR ---
breaking primary rn, pt is being walked around the unit by sitter, mostly calm
--- NOTE | 2020-06-20 12:00 | NUR ---
pt is sleeping in his room. sitter at bedside
--- NOTE | 2020-06-20 13:40 | NUR ---
breaking primary RN, [facility]
--- NOTE | 2020-06-20 14:30 | NUR ---
pt is sleeping
--- NOTE | 2020-06-20 15:00 | NUR ---
pt is resting
--- NOTE | 2020-06-20 15:00 | NUR ---
Laura salinas in [facility] - 06/20/20 at 1758 by YESICA nurse to nurse report given
--- NOTE | 2020-06-20 16:00 | NUR ---
pt is sleeping
--- NOTE | 2020-06-20 17:00 | NUR ---
Laura salinas in [facility] - 06/20/20 at 1807 by YESICA pt is up walking around. sitter with patient. pt is unstersady
--- NOTE | 2020-06-20 17:00 | NUR ---
pt is walking around. pt is unsteady on his sitter. sitter with patient at all times
--- NOTE | 2020-06-20 17:56 | NUR ---
Laura salinas in [facility] - 06/20/20 at 1757 by YESICA pt is going to [facility].
--- NOTE | 2020-06-20 18:08 | NUR ---
pt is in bed with sitter next to him.
--- NOTE | 2020-06-20 18:45 | NUR ---
Laura salinas in ED - 06/20/20 at 1924 by SALAZAR Patient's mother called for update. Carmelo from Mental [facility] talked to her.
[2020-06-20] MEDS: atorvastatin 20mg tablet PO SCH (20:12)
[2020-06-20] MEDS: divalproex sod 250mg ER (24-hour) tablet PO SCH (20:13)
--- NOTE | 2020-06-20 21:20 | NUR ---
Pt appears to be sleeping, lying on his left side with blankets covering to his shouders. 1:1 Finn gonzalez, at bedside.
--- NOTE | 2020-06-21 06:39 | NUR ---
pt is sleeping. no concerns at this time
--- NOTE | 2020-06-21 07:22 | NUR ---
pt woke up to go to the bathroom, pt was hitting himself on the left side of his head near eye area, I am noticing bruising. Tried to get patient to stop but pt continues. pt knows to pull his pants down for restroom but does not aim his penis to toilet. I assisted and then assisted pt in washing hands
[2020-06-21] MEDS: risperiDONE 0.5mg tablet PO SCH ×2 (08:42→23:19)
[2020-06-21] MEDS: metoprolol tartrate 25mg tablet PO SCH ×2 (08:42→23:18)
[2020-06-21] MEDS: LORazepam 1 MG tablet PO PRN ×3 (09:00→23:17)
--- NOTE | 2020-06-21 09:30 | NUR ---
pt is ambulating around the unit with stand by. pt has steady gait but is a fall risk
--- NOTE | 2020-06-21 11:30 | NUR ---
pt ambulating around with the sitter
--- NOTE | 2020-06-21 14:17 | NUR ---
ryder paged to help with placement
[2020-06-21] MEDS: risperiDONE 0.5mg tablet PO PRN ×2 (15:08→23:20)
--- NOTE | 2020-06-21 16:51 | NUR ---
It has been said that the patient had a bed and lost it cause of pending TB test, this is not true. Additionally the patient was never accepted as an inpt upstairs at [facility]. The pt is waiting placement with [facility]. Two sites are possibility interested in taking the patient. It has been said they are going to come to [facility] to assess the patient in person to determine if it would be a good fit. Carlene has been consulted to help with placement. Neither place has called for a report or showed up to interview the patient
--- NOTE | 2020-06-21 19:00 | NUR ---
Pt resting comfortably, respirations normal, no s/s of distress.
--- NOTE | 2020-06-21 20:10 | NUR ---
Pt resting comfortably, respirations normal, no s/s of distress.
--- NOTE | 2020-06-21 22:00 | NUR ---
Pt resting comfortably, respirations normal, no s/s of distress.
--- NOTE | 2020-06-21 23:00 | NUR ---
Pt up out of bed. Meds given.
[2020-06-21] MEDS: divalproex sod 250mg ER (24-hour) tablet PO SCH (23:18)
[2020-06-21] MEDS: atorvastatin 20mg tablet PO SCH (23:19)
--- NOTE | 2020-06-21 23:37 | NUR ---
Pt up walking around wacking himself. Pt redirected.
--- NOTE | 2020-06-22 01:00 | NUR ---
Pt resting comfortably, respirations normal, no s/s of distress.
--- NOTE | 2020-06-22 02:02 | NUR ---
Pt resting comfortably, respirations normal, no s/s of distress.
--- NOTE | 2020-06-22 03:00 | NUR ---
Pt resting comfortably, respirations normal, no s/s of distress.
--- NOTE | 2020-06-22 04:17 | NUR ---
Pt resting comfortably, respirations normal, no s/s of distress.
--- NOTE | 2020-06-22 04:55 | NUR ---
Pt resting comfortably, respirations normal, no s/s of distress.
[2020-06-22] MEDS: risperiDONE 0.5mg tablet PO SCH ×2 (07:40→19:58)
[2020-06-22] MEDS: metoprolol tartrate 25mg tablet PO SCH ×2 (07:41→19:57)
--- NOTE | 2020-06-22 08:33 | NUR ---
SPOKE WITH ANNIKA [facility] HULL BUILDER. SHE STATES HERSELF, THE BODYBUILDER, AND TEAM ARE HAVING A MEETING ABOUT THE PT THIS MORNING. SHE STATES 1-2 FACILITIES ARE REVIEWING THE PT. NOTES HER COWORKER WILL GIVE US A CALL LATER TODAY WITH AN UPDATE.
--- NOTE | 2020-06-22 08:43 | NUR ---
PATIENT VOMITED SOME FOOD WHILE STANDING IN FRONT OF BED.
[2020-06-22] MEDS: LORazepam 1 MG tablet PO PRN (09:17)
--- NOTE | 2020-06-22 09:45 | NUR ---
PT SCRUBS AND SOCKS CHANGED TIDY THE BED WITH HELP OF MENG FLYNN,GIVEN WARM BLANKET AND NOW RESTING IN THE BED .
--- NOTE | 2020-06-22 09:58 | NUR ---
PT REDIRECTED TO GO BACK TO BED SEVERAL TIME .PT NOW RESTING IN BED WILL CONT TO MONITOR.ROOM IN FRONT OF NURSES STATION.
--- NOTE | 2020-06-22 10:14 | NUR ---
PT IS SLEEPING AT THIS TIME, PT WAS TRIED WANDERING AROUND ,NO DISTRESS NOTED WILL CONT TO MONITOR,PT SLEEPING ON HIS RGT SIDE .
--- NOTE | 2020-06-22 11:17 | NUR ---
[facility] INTERVIEWED PT AND NURSE INQUIRING IF PT WOULD BE A GOOD FIT FOR ONE OF THEIR HOMES. SHE STATES SHE WILL GIVE US A CALL THIS AFTERNOON AFTER SPEAKING WITH HER TEAM ABOUT POSSIBLE PLACEMENT THURSDAY OR THURSDAY DEPENDING ON AVAILABILITY. HER NAME IS MARKEL, CELL PHONE NUMBER [phone].
--- NOTE | 2020-06-22 13:00 | NUR ---
PT UP AND SITTING ON THE BEDSIDE EATING HIS LUNCH,NO DISTRESS NOTED,WILL CONT TO MONITOR.
--- NOTE | 2020-06-22 14:24 | NUR ---
PT WANDERING IN THE HALLWAY ,FOLLOWS THE REDIRECTION.
--- NOTE | 2020-06-22 16:02 | NUR ---
pt resting in bed quietly will cont to monitor,pt change his poistion in bed but not getting up out of bed since 45 min.as pt was tired from wandering around.
--- NOTE | 2020-06-22 16:46 | NUR ---
pt up in bed .walked in hallway now back to bed ,no distress noted will cont to monitor.
--- NOTE | 2020-06-22 16:58 | NUR ---
pt assisted to the restroom ,pt able to urinate in toilet with min assistance .pt went back to bed after urination and now resting in bed quietly with his blanket on.
--- NOTE | 2020-06-22 18:27 | NUR ---
pt done with his tray now laying in bed ,no distress noted will cont to monitor.
[2020-06-22] MEDS: divalproex sod 250mg ER (24-hour) tablet PO SCH (20:00)
[2020-06-22] MEDS: atorvastatin 20mg tablet PO SCH (20:00)
--- NOTE | 2020-06-22 20:34 | NUR ---
pt sleeping in bed at this time ,will cont to monitor,pt took all his night meds without any difficulity,rr even and unlabored.
[2020-06-23] MEDS: LORazepam 1 MG tablet PO PRN (00:28)
--- NOTE | 2020-06-23 00:29 | NUR ---
Pt moved from [facility] 23 to ED 8 for house convenience. Pt given snack and Ativan 1 mg for agitation.
[2020-06-23] MEDS: risperiDONE 0.5mg tablet PO SCH ×2 (09:31→21:27)
[2020-06-23] MEDS: metoprolol tartrate 25mg tablet PO SCH ×2 (09:32→21:28)
--- NOTE | 2020-06-23 09:35 | NUR ---
PT MEDICATED AFTER PT DONE WITH HIS BREAKFAST .
--- NOTE | 2020-06-23 09:48 | NUR ---
WALKING PT AROUND IN THE HALLWAY ,NO DISTRESS NOTED ,PT OBEYS COMMAND.WILL CONT TO MONITOR.
--- NOTE | 2020-06-23 11:56 | NUR ---
PT UP IN BED AT THIS TIME ,SITTER TA BEDSIDE .WILL CONT TO MONITOR.
--- NOTE | 2020-06-23 12:14 | NUR ---
PT WALKING IN THE HALLWAY WITH MENG SPEARS.WILL CONT TO MONITOR.
--- NOTE | 2020-06-23 13:01 | NUR ---
PT RESTING IN BED QUIETLY ,SITTER AT BED SIDE ,WILL CONT TO MONITOR.
--- NOTE | 2020-06-23 14:42 | NUR ---
PT RESTING IN BED QUIETLY SITTER AT BEDSIDE.WILL CONT TO MONITOR.
--- NOTE | 2020-06-23 18:30 | NUR ---
Pt in bed awake. He is non verbal makes various sounds makes needs known with gestures.
[2020-06-23] MEDS: divalproex sod 250mg ER (24-hour) tablet PO SCH (21:27)
[2020-06-23] MEDS: atorvastatin 20mg tablet PO SCH (21:28)
--- NOTE | 2020-06-23 21:30 | NUR ---
Pt cooperative with care took all HS meds. Ambulates on unit with stand by assist.
--- NOTE | 2020-06-24 03:23 | NUR ---
Pt getting out of bed agitated attempt to give him ativan pt refused by pushing medication away. Is resting quietly at this time.
--- NOTE | 2020-06-24 05:45 | NUR ---
Pt ambulated to BR voided depends remains dry.
--- NOTE | 2020-06-24 07:00 | NUR ---
Patient is lying on his bacl side in no apparent distress. Patient RR is 14 and skin is pink, warm and dry. Patient is resting with eyes closed.
--- NOTE | 2020-06-24 09:00 | NUR ---
Patient is asleep on right side, regular breathing observed, will continue to monitor.
--- NOTE | 2020-06-24 09:08 | NUR ---
Breaking primary RN, pt up and trying to open doors, was directed back to his bed, cooperated willingly, calm
[2020-06-24] MEDS: risperiDONE 0.5mg tablet PO SCH ×2 (09:15→21:11)
[2020-06-24] MEDS: metoprolol tartrate 25mg tablet PO SCH ×2 (09:17→21:12)
--- NOTE | 2020-06-24 10:39 | NUR ---
Breaking primary RN, pt is up and walking arounf, sitter redirects when needed, calm
--- NOTE | 2020-06-24 11:00 | NUR ---
Patient is up and walking around, sitter redirects when needed, calm and in no distress.
--- NOTE | 2020-06-24 13:00 | NUR ---
Patient is up and walking around, sitter redirects when needed, calm and in no distress. RR is 16.
--- NOTE | 2020-06-24 13:39 | NUR ---
Break RN; Pt wandering around unit. Pt easily directable and cooperative. Pt shown back to his bed by tech.
--- NOTE | 2020-06-24 15:00 | NUR ---
Patient is resting with his eyes closed, RR is 12. Patient has fresh water and a snack available at bedside.
--- NOTE | 2020-06-24 17:00 | NUR ---
Patient is resting with his eyes closed, RR is 14. Patient has fresh water and a snack available at bedside.
--- NOTE | 2020-06-24 18:25 | NUR ---
SBAR report given to Phyllis Alvarez RN. All questions answered.
[2020-06-24] MEDS: atorvastatin 20mg tablet PO SCH (21:11)
[2020-06-24] MEDS: divalproex sod 250mg ER (24-hour) tablet PO SCH (21:11)
--- NOTE | 2020-06-25 01:15 | NUR ---
Pt is awake now, walked around the [facility] for several laps with staff standby. His clothes and brief were changed and linen changed, placed back into bed with crayons and coloring book.
[2020-06-25] MEDS: LORazepam 1 MG tablet PO PRN ×2 (02:05→20:46)
--- NOTE | 2020-06-25 06:30 | NUR ---
PT IS SLEEPING
--- NOTE | 2020-06-25 08:30 | NUR ---
PT IS SLEEPING
--- NOTE | 2020-06-25 10:30 | NUR ---
PT IS SLEEPING
[2020-06-25] MEDS: risperiDONE 0.5mg tablet PO SCH ×2 (10:39→20:46)
[2020-06-25] MEDS: metoprolol tartrate 25mg tablet PO SCH ×2 (10:40→20:46)
--- NOTE | 2020-06-25 12:00 | NUR ---
pt was evaluated and accepted at [facility]. pt will be picked up thursday. a second covid needs to be collected on thursday prior to dc
--- NOTE | 2020-06-25 14:00 | NUR ---
PT IS SLEEPING. NO CONCERNS AT THIS TIME
--- NOTE | 2020-06-25 16:00 | NUR ---
PT IS RESTING
--- NOTE | 2020-06-25 18:20 | NUR ---
PT IS RESTING
--- NOTE | 2020-06-25 18:48 | NUR ---
RECEIVED REPROT FROM CLARISSA Finch RN. PT REPORTED TO HAVE BEEN BUSY TODAY AMBULATING AROUND THE UNIT REGULARLY AND WITH STEADY GAIT. HE REGULARLY LIKES TO HAVE SNACKS AND ATE MOST OF HIS DINNER. PT HAS BEEN ACCEPTED TO A FACILITY AND IS TO BE TRANSFERRED ON THURSDAY THIS WEEK. PT CURRENTLY HUMMING AND MAKING "BUZZING" NOISES. IS NOW SITTING ON THE DEGE OF THE BED EXAMINING THE SMALL AMT OF FOOD THAT IS LEFT ON HIS DINNER TRAY. PT JUST LAY BACK DOWN ON THE BED AND PULLED BLANKETS OVER HIM.
--- NOTE | 2020-06-25 19:10 | NUR ---
OUT OF BED AND AMBULATING IN HALLWAY.
[2020-06-25] MEDS: divalproex sod 250mg ER (24-hour) tablet PO SCH (20:47)
[2020-06-25] MEDS: atorvastatin 20mg tablet PO SCH (20:47)
--- NOTE | 2020-06-25 20:50 | NUR ---
pt given evening meds with no problems, able to swallow his meds whole with applesauce. noted to have a wet brief and his pants also wet. Pt and bedding changed.
--- NOTE | 2020-06-25 21:21 | NUR ---
PT CHANGED INTO NEW SCRUBS AND BEDDING CHANGED. NOW IN BED AND CONTINUOUSLY MAKING "BUZZING" NOISES. SITTER AT BEDSIDE.
--- NOTE | 2020-06-25 23:23 | NUR ---
PT HAS BEEN SLEEPING FOR THE PAST HOUR AND HALF, REMAINS ASLEEP. SITTER AT BEDSIDE.
--- NOTE | 2020-06-26 01:16 | NUR ---
BREAKING PRIMARY RN, PT ASLEEP, RR EVEN AND UNLABORED, WILL CONTINUE TO MONITOR
--- NOTE | 2020-06-26 02:07 | NUR ---
PT REMAINS ASLEEP, STILL LYING ON HIS RIGHT SIDE WITH BLANKETS COVERING TO HIS SHOUDERS. RR 14 AND UNLABORED. SITTER AND RN WITHIN VIEW AAT.
--- NOTE | 2020-06-26 04:24 | NUR ---
PT REMAINS ASLEEP
--- NOTE | 2020-06-26 06:00 | NUR ---
pt just awakened and got out of bed and began wandering unit. Moaning intermittently. pt then back to his bed and while getting vs taken, urinated in his brief and leaked down his legs. Pt changed. Pt had been offered the bathroom twice while just walking and he pushed the door away. HR 107. otherwise vss.
--- NOTE | 2020-06-26 06:30 | NUR ---
Received report from Ivanna LESTER, [facility].
--- NOTE | 2020-06-26 07:43 | NUR ---
Patient wandering unit. Has drank 1 L of water since 0500. Patient continually wants to drink. Will monitor activity to maintain safety.
[2020-06-26] MEDS: risperiDONE 0.5mg tablet PO SCH ×2 (08:11→21:02)
[2020-06-26] MEDS: metoprolol tartrate 25mg tablet PO SCH ×2 (08:14→21:02)
--- NOTE | 2020-06-26 08:15 | NUR ---
Took AM meds with applesauce well, gets up frequently to walk around unit.
--- NOTE | 2020-06-26 09:28 | NUR ---
Wandering around, easily directable.
--- NOTE | 2020-06-26 10:00 | NUR ---
Patient wandering around the unit, will cont. to monitor.
--- NOTE | 2020-06-26 11:30 | NUR ---
Patient resting in bed, gets up and down continually. Continue to monitor.
--- NOTE | 2020-06-26 12:15 | NUR ---
Wandering unit, easily directable. Will cont. to monitor.
[2020-06-26] MEDS: LORazepam 1 MG tablet PO PRN ×2 (12:54→22:59)
--- NOTE | 2020-06-26 13:18 | NUR ---
Patient resting in bed, gave ativan recently to help patient rest/relax from being so restless and wandering continually.
--- NOTE | 2020-06-26 14:31 | NUR ---
pt given snack to eat as pt rubbing his abdomen,pt went back to his bed.no distress noted .will cont to monitor.breaking primary nurse at this time.
--- NOTE | 2020-06-26 15:09 | NUR ---
Patient laying awake in bed, making noncomprehensible sounds. No s/sx of distress noted, will cont. to monitor.
--- NOTE | 2020-06-26 16:45 | NUR ---
Patient is busy, getting up and down and wandering all over unit. Easy to direct. Will cont. to monitor.
--- NOTE | 2020-06-26 17:37 | NUR ---
Patient resting in bed making noncomprehesible sounds, no s/sx of distress. Will cont. to monitor.
--- NOTE | 2020-06-26 18:58 | NUR ---
pt sitting up at edge of bed eating dinner.
[2020-06-26] MEDS: divalproex sod 250mg ER (24-hour) tablet PO SCH (21:02)
[2020-06-26] MEDS: atorvastatin 20mg tablet PO SCH (21:02)
[2020-06-27] MEDS: risperiDONE 0.5mg tablet PO PRN (00:33)
--- NOTE | 2020-06-27 02:37 | NUR ---
pt has been awake for a few hrs. he has a sitter at bedside who consistantly redirects him into bed. pt prefers to wonder aimlessly but d/t safety reasons, is unable to
--- NOTE | 2020-06-27 06:02 | NUR ---
pt is sleeping. did not want to take v/s due to waking him up. will wait for breakfast time. pt did not sleep much tonight. he was able to fall asleep around 3:30 AM
[2020-06-27] MEDS ORDERED: BENZ0.5T4 PO (07:05)
[2020-06-27] MEDS ORDERED: HALO1TAB PO (07:05)
[2020-06-27] MEDS ORDERED: ATOR20TA PO (07:05)
[2020-06-27] MEDS ORDERED: METO25TA6 PO (07:05)
[2020-06-27] MEDS ORDERED: DIVA-81 PO (07:05)
[2020-06-27 08:49] VITALS: BP 120/60
[2020-06-27] MEDS: metoprolol tartrate 25mg tablet PO SCH (08:49)
[2020-06-27] MEDS: risperiDONE 0.5mg tablet PO SCH (08:50)
== END 2020-06-27 10:17 ==
LOC: ER 17:33
DX: F79 Unspecified intellectual disabilities (principal); R45.1 Restlessness and agitation; I10 Essential (primary) hypertension; Z86.69 Personal history of other diseases of the nervous system and sense organs; Z88.0 Allergy status to penicillin; Z79.899 Other long term (current) drug therapy
CPT/HCPCS: 36415; 76700; 80053; 80305; 80320; 81001; 82550; 82948; 84443; 85025; 87635; 96372; 99285; C9803; J2060; J7030